=== PATIENT | female | born 1965 | race Caucasian/White ===

== ENCOUNTER 2024-10-13 12:32 | Inpatient (IN) | payer MEDICARE ==
[~2024-10-13] VITALS: Ht 170.2 cm; Wt 98.0 kg
[2024-10-13] VITALS (9 sets, daily range): BP systolic 138–194; BP diastolic 62–81
--- NOTE | 2024-10-13 12:50 | NUR ---
PT AMBULATED TO ROOM 15 IN NO DISTRESS.
[2024-10-13] MEDS ORDERED: BUSPIRONE5 MG PO (12:53)
[2024-10-13] MEDS ORDERED: OMEPRAZOLE20 MG PO (12:54)
[2024-10-13] MEDS ORDERED: PAROXETINE40 M1 (12:54)
[2024-10-13] MEDS ORDERED: ALPRAZOLAM1 MG PO (12:55)
[2024-10-13] MEDS ORDERED: IPRATROPIUM-Albuterol 0.5MG-2.5MG/3 ML IN ONE ×2 (14:00)
[2024-10-13] MEDS ORDERED: methylPREDNISolone SODIUM SUCC 125 MG/2 ML SDV IV ONE (14:00)
[2024-10-13] MEDS ORDERED: IPRATROPIUM-Albuterol 0.5MG-2.5MG/3 ML NEB ONE (14:00)
--- NOTE | 2024-10-13 14:40 | NUR ---
PT STATES ADVERSE REACTION TO TREATMENTS-MD NOTIFIED OF PT'S CONCERNS
[2024-10-13] MEDS ORDERED: IPRATROPIUM-Albuterol 0.5MG-2.5MG/3 ML ONE ×4 (15:07→16:27)
--- NOTE | 2024-10-13 16:00 | NUR ---
PT SYMPTOMS UNCHANGED-SCATTERED RHONCI/EXPIRATORY WHEEZING AUSCULTATED.
[2024-10-13 16:22] LABS: BASO% 1.6 % (0-3); EOS% 1.5 % (0-8); HEMATOCRIT 43.9 % (37.0-47.0); HEMOGLOBIN 14.6 g/dl (12.0-16.0); IMMATURE GRANULOCYTES 0.1 % (0.0-5.0); LYMPH% 21.9 % (15-41); MEAN CELL VOLUME 90.9 fL CALC (80.0-100.0); MEAN CORPUSCULAR HGB 30.2 pG CALC (26.0-32.0); MEAN CORPUSCULAR HGB CONC 33.3 g/dL CAL (32.0-36.0); NEUT# 5.67 thou/uL (2.00-7.15); NEUT% 65.9 % (42-76); RED BLOOD COUNT 4.83 mill/uL (4.20-5.60); RED CELL DISTRI WIDTH 13.3 % (11.5-15.5)
[2024-10-13 16:40] LABS: CREATININE 0.7 mg/dL (0.5-1.0); POTASSIUM 3.9 mmol/l (3.5-5.1)
[2024-10-13] MEDS ORDERED: AZITHROMYCIN 500 MG in SODIUM CHLORIDE 0.9% 500 ML IV ONE (16:50)
[2024-10-13] MEDS ORDERED: methylPREDNISolone Sod Succ 40 MG/ML SDV IV SCH (17:08)
[2024-10-13] MEDS ORDERED: DOXYCYCLINE HYCLATE 100 MG in SODIUM CHLORIDE 0.9% 100 ML IV SCH (17:10)
[2024-10-13] MEDS ORDERED: IPRATROPIUM-Albuterol 0.5MG-2.5MG/3 ML NEB PRN (17:10)
[2024-10-13] MEDS ORDERED: Polyethylene Glycol 3350 17 GM/PKT PO PRN (17:15)
[2024-10-13] MEDS ORDERED: ACETAMINOPHEN 325 MG/TAB PO PRN (17:15)
[2024-10-13] MEDS ORDERED: BENZONATATE 200 MG/CAP PO PRN (17:15)
--- NOTE | 2024-10-13 17:48 | NUR ---
AWAITING BED ASSIGNMENT-PT VERBALIZED UNDERSTANDING OF NEED FOR ADMISSION.
[2024-10-13] MEDS ORDERED: PIPERACILLIN Sodium-Tazobactam 3.375 GM in SODIUM CHLORIDE 0.9% 100 ML IV SCH (18:00)
--- NOTE | 2024-10-13 18:32 | NUR ---
ADVISED OF CONTINUED WAIT TIME RELATED TO BED ASSIGNMENT-MEAL GIVEN TO PT.
--- NOTE | 2024-10-13 20:12 | NUR ---
CALL TO DR HUGHES REGARDING ELAVTION IN LACTIC ACID. VERBAL ORDER RECEIVED FOR LACTATED RINGERS AT 100ML/HR AND A LACTIC ACID RECHECK TWO HOURS AFTER START OF FLUID.
--- NOTE | 2024-10-13 20:20 | NUR ---
ORDER WRITTEN AND FAXED TO [facility].
[2024-10-13] MEDS ORDERED: LACTATED RINGER'S 1,000 ML IV ONE (20:30)
--- NOTE | 2024-10-13 20:36 | NUR ---
ATTEMPT TO CALL REPORT. NURSE CURRENTLY IN A ROOM.
--- NOTE | 2024-10-13 20:57 | NUR ---
REPORT GIVEN TO Consuelo DAVIS LPN.
[2024-10-13] MEDS ORDERED: ENOXAPARIN SODIUM 40 MG/0.4 ML SYR SC SCH (21:00)
--- NOTE | 2024-10-13 21:15 | NUR ---
PATIENT TRANSPORTED TO [facility] ROOM 283. CARE HANDED OVER TO Consuelo DAVIS LPN
--- NOTE | 2024-10-13 21:30 | NUR ---
PATIENT ARRIVED FROM ER TO MS AT 2314. BEDSIDE ASSESSMENT COMPLETE. A&O X4. NO COMPLAINTS OF PAIN AT THIS TIME. EQUAL UNLABORED RESP. O2 VIA NC AT 2L. WHEEZING HEARD UPON AUSCULTATION. NORMAL S1&S2. BOWEL SOUNDS PRESENT IN ALL 4 QUADRENTS. PERIPHERAL PULSES EQUAL AND STRONG. BED AT LOWEST POSITION. CALL LIGHT WITH IN REACH.
[2024-10-13] MEDS ORDERED: REPATHA SUR140 MG/ML SC (22:53)
--- NOTE | 2024-10-14 00:07 | NUR ---
PATIENT OBSERVED TO BE IN BED AWAKE. PATIENT CAN MAKE NEEDS KNOWN. NONE NEDED AT THIS TIME. O2 VIA NC AT 2L. UNLABORED RESP. BED AT LOWEST POSITION. CALL LIGHT WITH IN REACH.
--- NOTE | 2024-10-14 04:42 | NUR ---
PATIENT OBSERVED IN ROOM RESTING IN BED WITH EYES CLOSED. O2 VIA NC AT 2L. UNLABORED RESP. NO VISUAL SIGNS OF DISTRESS. BED AT LOWEST POSITION. CALL LIGHT WITH IN REACH.
[2024-10-14 05:17] VITALS: BP 193/88
[2024-10-14 05:30] VITALS: BP 167/65
[2024-10-14 06:14] LABS: BASO% 0.1 % (0-3); HEMATOCRIT 42.2 % (37.0-47.0); HEMOGLOBIN 13.8 g/dl (12.0-16.0); IMMATURE GRANULOCYTES 0.2 % (0.0-5.0); LYMPH% 7.2 % (15-41); MEAN CELL VOLUME 92.1 fL CALC (80.0-100.0); MEAN CORPUSCULAR HGB 30.1 pG CALC (26.0-32.0); MEAN CORPUSCULAR HGB CONC 32.7 g/dL CAL (32.0-36.0); MONO% 2.6 % (2-13); NEUT# 8.69 thou/uL (2.00-7.15); NEUT% 89.9 % (42-76); RED BLOOD COUNT 4.58 mill/uL (4.20-5.60); RED CELL DISTRI WIDTH 13.1 % (11.5-15.5)
[2024-10-14 06:23] LABS: ALBUMIN 3.9 g/dL (3.2-5.0); BILIRUBIN, TOTAL 0.4 mg/dL (0.02-1.3); CREATININE 0.7 mg/dL (0.5-1.0); POTASSIUM 4.2 mmol/l (3.5-5.1); TOTAL PROTEIN 6.4 g/dL (6.3-8.2)
--- NOTE | 2024-10-14 08:00 | NUR ---
PT WAS SEEN RESTING COMFORTABLY IN BED; PT ASSESSMENT WAS COMPLETED AND MEDICATIONS WERE ADMINISTERED. PLAN OF CARE WAS REVIEWED. PT IS A&OX4 AND MAKES HER NEEDS KNOWN; PT STATES SHE HAS NO FURTHER QUESTIONS. ALL NATIONAL PATIENT SAFETY PRECAUTIONS IN PLACE
[2024-10-14 08:18] VITALS: BP 152/85
[2024-10-14] MEDS ORDERED: guaiFENesin-CODEINE 200-20 MG/10 ML UDC PO PRN (12:00)
--- NOTE | 2024-10-14 12:00 | NUR ---
PT'S CONDITION HAS REMAINED THE SAME; ALL NATIONAL PATIENT SAFETY PRECAUTIONS IN PLACE
[2024-10-14] MEDS ORDERED: LACTATED RINGER'S 1,000 ML IV PRN (12:20)
[2024-10-14] MEDS ORDERED: ALPRAZolam 1 MG/TAB PO PRN (12:30)
[2024-10-14] MEDS ORDERED: PARoxetine 10 MG/TAB PO SCH (13:00)
[2024-10-14] MEDS ORDERED: busPIRone HCL 5 MG/TAB PO SCH (13:00)
[2024-10-14] MEDS ORDERED: PANTOPRAZOLE SODIUM Sesquihydr 40 MG/TAB PO SCH (13:00)
--- NOTE | 2024-10-14 16:00 | NUR ---
PT'S CONDITION HAS REMAINED THE SAME; ALL NATIONAL PATIENT SAFETY PRECAUTIONS IN PLACE
[2024-10-14 19:19] VITALS: BP 154/70
--- NOTE | 2024-10-14 19:50 | NUR ---
awake. no resp distress. o2 cont. cafeteria monitor shows sinus rhythm. po fluids taken well. voids per br.
[2024-10-14 20:12] VITALS: BP 154/70
[2024-10-15] VITALS (7 sets, daily range): BP systolic 125–172; BP diastolic 60–90
--- NOTE | 2024-10-15 00:01 | NUR ---
telemetry shows sinus rhythm hr 76
--- NOTE | 2024-10-15 04:00 | NUR ---
telemetry shows sinus rhythm hr 75.
--- NOTE | 2024-10-15 06:05 | NUR ---
lab here. blood drawn.
[2024-10-15 06:19] LABS: BASO% 0.1 % (0-3); HEMATOCRIT 42.8 % (37.0-47.0); HEMOGLOBIN 14.1 g/dl (12.0-16.0); IMMATURE GRANULOCYTES 0.5 % (0.0-5.0); LYMPH% 7.8 % (15-41); MEAN CORPUSCULAR HGB 30.7 pG CALC (26.0-32.0); MEAN CORPUSCULAR HGB CONC 32.9 g/dL CAL (32.0-36.0); MONO% 4.3 % (2-13); NEUT# 13.79 thou/uL (2.00-7.15); NEUT% 87.3 % (42-76); RED BLOOD COUNT 4.6 mill/uL (4.20-5.60); RED CELL DISTRI WIDTH 13.4 % (11.5-15.5)
[2024-10-15 06:33] LABS: ALBUMIN 3.8 g/dL (3.2-5.0); BILIRUBIN, TOTAL 0.5 mg/dL (0.02-1.3); CREATININE 0.7 mg/dL (0.5-1.0); MAGNESIUM 1.9 mg/dL (1.6-2.3); POTASSIUM 4.3 mmol/l (3.5-5.1); TOTAL PROTEIN 6.5 g/dL (6.3-8.2)
--- NOTE | 2024-10-15 08:00 | NUR ---
PT IS SITTING UP IN BED, [employer] INVESTIGATOR AT BEDSIDE. CALL LIGHT IN REACH.
[2024-10-15] MEDS ORDERED: hydrALAZINE HCL 20 MG/ML VIAL(1 ML) IV PRN (11:30)
[2024-10-15] MEDS ORDERED: amLODIPine BESYLATE 5 MG/TAB PO SCH (12:00)
--- NOTE | 2024-10-15 12:00 | NUR ---
PT IS SITTING IN BED, EATING LUNCH. CALL LIGHT IN REACH. PT EDUCATED ON NEW MEDICATION. PT STATES NO QUESTIONS OR CONCERNS AT THIS TIME.
[2024-10-15] MEDS ORDERED: IPRATROPIUM-Albuterol 0.5MG-2.5MG/3 ML NEB SCH (15:00)
[2024-10-15] MEDS ORDERED: ZINC OXIDE TOP PRN ×2 (16:05→16:20)
--- NOTE | 2024-10-15 16:09 | NUR ---
PT IS SITTING UP IN BED, CALL LIGHT IN REACH. FIANCE AT THE BEDSIDE.
--- NOTE | 2024-10-15 21:00 | NUR ---
PATIENT A/OX4, NO C/O PAIN, PATIENT O2 VIA NC PATIENT WITH WHEEZING PANCHITO UPPER LOBES NOT IN RESPIRATORY DISTRESS. PATIENT C/O ANXIETY PATIENT XANAX BID PRN, NOTIFIED [facility]FFER ABOUT PATIENT ANXIETY, ONE TIME THIRD OF XANAX DOSE WAS ORDER
[2024-10-15] MEDS ORDERED: ALPRAZolam 1 MG/TAB PO SCH (21:07)
[2024-10-16] VITALS (11 sets, daily range): BP systolic 134–162; BP diastolic 59–80
--- NOTE | 2024-10-16 | NUR ---
PATIENT RESTING IN BED. PATIENT NO S/S RESPIRATORY DISTRESS PATIENT O2 VIA NC. PATIENT NO S/S PAIN NO FACIAL GRIMACING. PATIENT CALM AND RESTING. PATIENT HEART RHYTHM NORMAL SINCE WITH HEART RATE OF 83. PATIENT CALL LIGHT WITHIN REACH
[2024-10-16 05:15] LABS: BASO% 0.1 % (0-3); HEMATOCRIT 42.3 % (37.0-47.0); IMMATURE GRANULOCYTES 1.2 % (0.0-5.0); LYMPH% 7.4 % (15-41); MEAN CELL VOLUME 92.8 fL CALC (80.0-100.0); MEAN CORPUSCULAR HGB 30.7 pG CALC (26.0-32.0); MEAN CORPUSCULAR HGB CONC 33.1 g/dL CAL (32.0-36.0); MONO% 4.4 % (2-13); NEUT# 11.27 thou/uL (2.00-7.15); NEUT% 86.9 % (42-76); RED BLOOD COUNT 4.56 mill/uL (4.20-5.60); RED CELL DISTRI WIDTH 13.6 % (11.5-15.5)
[2024-10-16 05:27] LABS: ALBUMIN 3.7 g/dL (3.2-5.0); BILIRUBIN, TOTAL 0.3 mg/dL (0.02-1.3); CREATININE 0.9 mg/dL (0.5-1.0); MAGNESIUM 1.8 mg/dL (1.6-2.3); POTASSIUM 4.5 mmol/l (3.5-5.1); TOTAL PROTEIN 6.2 g/dL (6.3-8.2)
--- NOTE | 2024-10-16 05:37 | NUR ---
PATIENT RESTING, NO C/O PAIN. PATIENT NORMAL SINUS RHYTHM ON TELE. PATIENT NO S/S RESPIRATORY DISTRESS, NO NON PRODUCTIVE COUGH AFTER PRN COUGH MED GIVEN. PATIENT CALL LIGHT WITHIN REACH, WILL CONTINUE TO MONITOR
[2024-10-16] MEDS ORDERED: guaiFENesin-CODEINE 200-20 MG/10 ML UDC PO PRN (11:25)
[2024-10-17 04:31] VITALS: BP 159/67
[2024-10-17 06:03] LABS: BASO% 0.2 % (0-3); HEMATOCRIT 43.2 % (37.0-47.0); HEMOGLOBIN 14.5 g/dl (12.0-16.0); IMMATURE GRANULOCYTES 1.8 % (0.0-5.0); LYMPH% 11.9 % (15-41); MEAN CELL VOLUME 91.3 fL CALC (80.0-100.0); MEAN CORPUSCULAR HGB 30.7 pG CALC (26.0-32.0); MEAN CORPUSCULAR HGB CONC 33.6 g/dL CAL (32.0-36.0); MONO% 5.7 % (2-13); NEUT# 9.82 thou/uL (2.00-7.15); NEUT% 80.4 % (42-76); RED BLOOD COUNT 4.73 mill/uL (4.20-5.60); RED CELL DISTRI WIDTH 13.7 % (11.5-15.5)
[2024-10-17 06:09] LABS: ALBUMIN 3.8 g/dL (3.2-5.0); BILIRUBIN, TOTAL 0.3 mg/dL (0.02-1.3); CREATININE 0.7 mg/dL (0.5-1.0); MAGNESIUM 1.9 mg/dL (1.6-2.3); POTASSIUM 4.2 mmol/l (3.5-5.1); TOTAL PROTEIN 6.3 g/dL (6.3-8.2)
[2024-10-17 06:31] VITALS: BP 136/70
--- NOTE | 2024-10-17 06:36 | NUR ---
Alert/Oriented x4. Ambulates to bathroom independently. States she is still having mild diarrhea. Medications given per MAR. Patient states she would like to go home with ken with codeine because it is the only thing helping with cough and pain.
[2024-10-17] MEDS ORDERED: AMLODIPINE BESYL5 MG PO (10:31)
[2024-10-17] MEDS ORDERED: PREDNISONE10 MG PO (10:35)
[2024-10-17] MEDS ORDERED: VENTOLIN HFA108 MCG IN (10:36)
[2024-10-17] MEDS ORDERED: LEVOFLOXACIN500MG PO (10:36)
--- NOTE | 2024-10-17 11:05 | NUR ---
6 minute walk test completed by this nurse. No shortness of breath noted. O2 Sats remained above 98% on room air.
[2024-10-17 12:00] VITALS: BP 196/76
[2024-10-17 13:12] VITALS: BP 148/69
[2024-10-17 13:29] VITALS: BP 148/69
[2024-10-17] MEDS ORDERED: LABETALOL HCL 20 MG/ 4 ML CARTRG IV SCH (15:00)
== END 2024-10-17 16:50 | disposition home or self-care (01) | DRG 190 ==
LOC: ED 12:32 → ED-I 16:50 → ED 16:54 → MS2 16:55
PROVIDERS: Emergency Medicine; Nurse Practitioner Family; ADMIT Internal Medicine; ATTEND Internal Medicine
DX: J44.1 Chronic obstructive pulmonary disease with (acute) exacerbation (principal); J96.01 Acute respiratory failure with hypoxia; E87.20 Acidosis, unspecified; I10 Essential (primary) hypertension; F41.9 Anxiety disorder, unspecified; F32.A Depression, unspecified; Z87.891 Personal history of nicotine dependence; Z88.1 Allergy status to other antibiotic agents; Z20.822 Contact with and (suspected) exposure to COVID-19
CPT/HCPCS: J0360; J0456; J1650; J2543

== ENCOUNTER 2024-10-20 11:13 | Emergency (ER) | payer MEDICARE ==
[~2024-10-20] VITALS: Ht 170.2 cm; Wt 94.0 kg
[~2024-10-20 11:13] MED LIST: ALPRAZOLAM1 MG PO; AMLODIPINE BESYL5 MG PO; BUSPIRONE5 MG PO; LEVOFLOXACIN500MG PO; OMEPRAZOLE20 MG PO; PAROXETINE40 M1; PREDNISONE10 MG PO; REPATHA SUR140 MG/ML SC; VENTOLIN HFA108 MCG IN
[2024-10-20 11:24] VITALS: BP 140/70
[2024-10-20 11:30] VITALS: BP 136/70
[2024-10-20 12:00] VITALS: BP 128/83
[2024-10-20 12:27] LABS: CREATININE 0.8 mg/dL (0.5-1.0); D-DIMER 0.39 mg/L (0.19-0.60); POTASSIUM 4.1 mmol/l (3.5-5.1)
[2024-10-20 12:28] LABS: BASO% 0.1 % (0-3); EOS% 2.6 % (0-8); HEMATOCRIT 42.5 % (37.0-47.0); HEMOGLOBIN 14.5 g/dl (12.0-16.0); IMMATURE GRANULOCYTES 1.8 % (0.0-5.0); LYMPH% 34.5 % (15-41); MEAN CORPUSCULAR HGB CONC 34.1 g/dL CAL (32.0-36.0); MONO% 5.6 % (2-13); NEUT# 7.39 thou/uL (2.00-7.15); NEUT% 55.4 % (42-76); RED BLOOD COUNT 4.83 mill/uL (4.20-5.60); RED CELL DISTRI WIDTH 13.2 % (11.5-15.5)
[2024-10-20 12:30] VITALS: BP 137/74
[2024-10-20 12:55] LABS: PROTHROMBIN TIME 10.4 SECONDS (9.0-12.5)
[2024-10-20 14:25] VITALS: BP 137/74
== END 2024-10-20 14:29 | disposition home or self-care (01) ==
LOC: ED 11:13
PROVIDERS: Family Medicine
DX: I82.432 Acute embolism and thrombosis of left popliteal vein (principal); J44.9 Chronic obstructive pulmonary disease, unspecified; Z72.0 Tobacco use; Z86.718 Personal history of other venous thrombosis and embolism